=== PATIENT | female | born 1955 | race Caucasian/White ===

== ENCOUNTER 2019-05-26 09:10 | Outpatient (REF) | payer SELFPAY ==
[2019-05-26 10:55] LABS: Basophils # 0.1 10^3/uL (0.0-0.1); Basophils % 1.2 %; Eosinophils # 0.1 10^3/uL (0.0-0.8); Eosinophils % 2.5 %; Hematocrit 37.8 % (37.0-47.0); Lymphocytes % 35.7 %; Mean Corpuscular HGB Conc 34.4 g/dL (30.0-36.0); Mean Corpuscular Hemoglobin 31.3 pg (28.0-34.0); Mean Corpuscular Volume 90.9 fL (81-99); Mean Platelet Volume 10.1 fL (7.4-10.4); Monocytes # 0.4 10^3/uL (0.2-0.9); Monocytes % 6.3 %; Neutrophils # 3.1 10^3/uL (1.8-7.7); Neutrophils % 54.1 %; Nucleated Red Blood Cells % 0 %; Platelet Count 299 10^3/cmm (130-400); Red Blood Count 4.16 10^6/uL (4.1-5.3); Red Cell Distribution Width 11.8 % (12.1-15.1); White Blood Count 5.7 10^3/uL (4.0-10.0)
[2019-05-26 12:53] LABS: Alanine Aminotransferase 17 U/L (0-33); Albumin Level 4.6 g/dL (3.5-5.2); Alkaline Phosphatase 84 IU/L (35-105); Aspartate Amino Transferase 21 U/L (0-32); Blood Urea Nitrogen 14 mg/dL (8-23); Calcium 9.9 mg/dL (8.5-10.5); Carbon Dioxide 27 mmol/L (22-29); Chloride 98 mmol/L (98-107); Chol HDL Ratio 5.48 mg/dL (0.0-4.40); Cholesterol 252 mg/dL (0-200); Globulin 3.4 g/dL (1.3-4.6); Glomerular Filtration Rate 84.2 mL/min (90-130); Glucose 87 mg/dL (65-115); HDL Cholesterol 46 mg/dL (60-100); LDL Cholesterol Calculated 162 mg/dL (50-129); LDL HDL Ratio 3.52 RATIO (0.00-3.22); Sodium 137 mmol/L (136-145); Total Bilirubin 0.5 mg/dL (0.15-1.2); Triglycerides 220 mg/dL (0-150)
[2019-05-27 03:17] LABS: Estmated Average Glucose 117; Hemoglobin A1C 5.7 % (4.0-6.0)
== END 2019-05-26 09:11 | disposition home or self-care (01) ==
LOC: LAB 09:10
PROVIDERS: Family Provider Family Medicine; Visit Provider Dermatology
DX: Z01.89 Encounter for other specified special examinations (principal)
CPT/HCPCS: 80053; 80061; 83036; 84443; 85025

== ENCOUNTER → 2022-06-30 10:07 | Outpatient (BNVA) | payer SELFPAY | PROVIDERS: Family Provider Family Medicine; PCP Family Medicine; Visit Provider Family Medicine | DX: Z01.89 Encounter for other specified special examinations (principal); Z13.6 Encounter for screening for cardiovascular disorders ==

== ENCOUNTER 2023-03-09 19:21 | Emergency (ER) | payer MEDICARE, OTHER, SELFPAY ==
--- NOTE | 2023-03-09 19:24 | ECG_ITS ---
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 Measurements Intervals [place] Rate: 72 P: 63 WI: 148 QRS: 60 QRSD: 94 T: 73 QT: 361 QTc: 396 Interpretive Statements SINUS RHYTHM Nonspecific T wave changes Borderline EKG No previous ECG available for comparison Electronically Signed On 03-11-2023 13:38:12 CHIEF OF SURGERY by Michelle Sanchez M.D. [id number]
[2023-03-09 19:26] VITALS: BP 170/98; PULSE 71; RESP 18; TEMP 36.5; O2SAT 98; BMI 30.9
--- NOTE | 2023-03-09 19:32 | ECG_ITS ---
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 Measurements Intervals [place] Rate: 61 P: 46 TN: 129 QRS: 54 QRSD: 90 T: 82 QT: 416 QTc: 419 Interpretive Statements SINUS RHYTHM Nonspecific T wave changes Borderline EKG No previous ECG available for comparison Electronically Signed On 03-11-2023 13:26:57 TOOL DESIGN DRAFTER by Michelle Sanchez M.D. [id number]
--- NOTE | 2023-03-09 19:32 | XRR_ITS ---
PROCEDURE INFORMATION: Exam: XR Chest Exam date and time: 03/09/2023 7:39 PM Age: 67 years old Clinical indication: Pain; Chest pressure; Additional info: Chest pain TECHNIQUE: Imaging protocol: Radiologic exam of the chest. Views: 1 view. COMPARISON: No relevant prior studies available. FINDINGS: Lungs: Unremarkable. No consolidation. Pleural spaces: Unremarkable. No pleural effusion. No pneumothorax. Heart/Mediastinum: Unremarkable. No cardiomegaly. Bones/joints: No acute findings. XR/XR chest 1V portable [id number] IMPRESSION: No acute findings.
--- NOTE | 2023-03-09 20:03 | W.ED.CHESTPA ---
HPI - Chest Pain General: Chief Complaint: Chest Pain Stated Complaint: chest pain Time Seen by Provider: 03/09/23 19:35 History of Present Illness: Patient presents to the ER with experiencing chest pain/tightness off and on for a few weeks. Patient says she notices it more with activity but also notices it at rest 2. The pain is intermittent she says the pain got worse today versus any other day the patient does not take any blood pressure medicine is allergic to statins patient did say when she quit taking Splenda that this pain improved greatly. Patient denies any shortness of breath, diaphoresis, lightheadedness, nausea vomiting diarrhea. Patient is pain-free at this time. Patient does have known high cholesterol. And has had for some time Review of Systems General: Reports: 10 or more systems reviewed and unremarkable except in HPI and below Physical Exam Const: COMMON NORMALS: no acute distress, average body habitus, patient oriented x3, no limitations, healthy appearing, alert and well nourished HENMT: COMMON NORMALS: normocephalic, atraumatic, hearing grossly normal bilaterally, external ears normal, Normal external nose present, moist oral mucous membranes and oropharynx normal HEAD & SCALP: normocephalic and atraumatic NOSE: Normal external nose present EXTERNAL EAR: Yes external ears normal Eye: COMMON NORMALS: Equal, round and reactive pupils present, EOMs intact bilaterally, conjunctivae normal and no scleral icterus CONJUNCTIVA: Yes conjunctivae normal PUPIL: Yes Equal, round and reactive pupils present Neck/C-Spine: COMMON NORMALS: full ROM, no lymphadenopathy, supple, no meningeal signs, no JVD and Thyroid normal THYROID: Thyroid normal Chest: COMMONS NORMALS: normal inspection of the chest and normal palpation of entire chest wall Resp: COMMON NORMALS: normal respiratory effort, No retractions, No use of accessory muscles and clear to auscultation bilaterally AUSCULTATION: clear to auscultation bilaterally Cardio: COMMON NORMALS: no JVD, regular rate, regular rhythm, S1 normal heart sound present, S2 normal heart sound present, No gallops present (Cardio), No clicks present (Cardio), No murmurs present (Cardio) and No rub (Cardio) RATE: regular rate RHYTHM: regular rhythm HEART SOUNDS: S1 normal heart sound present and S2 normal heart sound present GI: COMMON NORMALS: Normal to inspection, nondistended, normoactive bowel sounds present, Soft to palpation, non-tender, No hepatosplenomegaly present and no masses PALPATION: Yes Soft to palpation and Yes No hepatosplenomegaly present : COMMON NORMALS: Yes no CVA tenderness BLADDER/KIDNEY EXAM: Yes no CVA tenderness Back/Pelvis: COMMON NORMALS: no CVA tenderness Neuro: COMMON NORMALS: patient oriented x3 SENSORIUM/ORIENTATION: Yes alert MENINGEAL SIGNS: Yes no meningeal signs Course Vital Signs: Vital signs: Vital Signs Temperature 97.7 F 03/09/23 19:26 Pulse Rate 62 03/09/23 21:04 Respiratory Rate 18 03/09/23 19:26 Blood Pressure 124/80 03/09/23 21:04 Pulse Oximetry 96 03/09/23 21:04 Oxygen Delivery Me thod Room Air 03/09/23 21:04 MDM - Chest Pain Medical Decision Making Patient presented to the ER with complaints of intermittent chest pain. Patient was worked up in a standard chest pain fashion with chest x-ray serial EKGs and labs. All of which were essentially negative. It is thought that the patient's pain is not cardiac in nature. Patient be referred back to her PCP for further evaluation testing which may include but not limited to cardiac stress test. Differential Diagnosis Unlikely acute massive pulmonary embolism, acute respiratory failure, acute myocardial infarction, cardiac arrest or sudden cardiac Medical Records I reviewed the patient's medical records. Lab Data I reviewed the patient's lab results. 03/09/23 19:40 03/09/23 19:40 Radiology Impressions Chest X-Ray 03/09/23 19:32 IMPRESSION: No acute findings. Laboratory Results WBC 7.12 10^3/uL (3.29-11.43) 03/09/23 19:40 RBC 4.12 10^6/uL (3.85-5.65) 03/09/23 19:40 Hgb 12.40 g/dL (11.27-16.99) 03/09/23 19:40 Hct 36.5 % (36-47) 03/09/23 19:40 MCV 88.6 fl (85-98) 03/09/23 19:40 MCH 30.1 pg (27-33) 03/09/23 19:40 MCHC 34.0 g/dL (30-55) 03/09/23 19:40 RDW 12.6 % (12.1-15.1) 03/09/23 19:40 Plt Count 282 10^3/cmm (157-399) 03/09/23 19:40 MPV 10.0 fL (7.4-10.4) 03/09/23 19:40 Neut % (Auto) 51.5 % 03/09/23 19:40 Lymph % (Auto) 38.6 % 03/09/23 19:40 [place] % (Auto) 6.6 % 03/09/23 19:40 Eos % (Auto) 2.2 % 03/09/23 19:40 Baso % (Auto) 1.0 % 03/09/23 19:40 Neut # (Auto) 3.66 10^3/uL (1.8-7.7) 03/09/23 19:40 Lymph # (Auto) 2.8 10^3/uL (0.8-4.8) 03/09/23 19:40 [place] # (Auto) 0.5 10^3/uL (0.2-0.9) 03/09/23 19:40 Eos # (Auto) 0.2 10^3/uL (0.0-0.8) 03/09/23 19:40 Baso # (Auto) 0.1 10^3/uL (0.0-0.1) 03/09/23 19:40 Nucleated RBC % (auto) 0 % 03/09/23 19:40 Nucleated RBCs # 0.0 /100WBC 03/09/23 19:40 Sodium 135 mmol/L (136-145) L 03/09/23 19:40 Potassium 3.8 mmol/L (3.5-5.1) 03/09/23 19:40 Chloride 98 mmol/L (98-107) 03/09/23 19:40 Carbon Dioxide 25 mmol/L (22-29) 03/09/23 19:40 Anion Gap 15.8 (5-19) 03/09/23 19:40 BUN 14 mg/dL (8-23) 03/09/23 19:40 Creatinine 0.7 mg/dL (0.5-0.9) 03/09/23 19:40 GFR Calculation 83.5 mL/min (90-130) L 03/09/23 19:40 Glucose 117 mg/dL (65-115) H 03/09/23 19:40 Calculated Osmolality 282 mOsm/kg (285-295) L 03/09/23 19:40 Calcium 9.7 mg/dL (8.5-10.5) 03/09/23 19:40 Total Bilirubin 0.2 mg/dL (0.15-1.2) 03/09/23 19:40 AST 21 U/L (0-32) 03/09/23 19:40 ALT 17 U/L (0-33) 03/09/23 19:40 Alkaline Phosphatase 88 U/L (35-105) 03/09/23 19:40 Troponin T Baseline < 6 ng/L (0-10) 03/09/23 19:40 Troponin T 120 Minute 6.00 ng/L (0-10) 03/09/23 22:00 Total Protein 7.4 g/dL (6.6-8.7) 03/09/23 19:40 Albumin 4.6 g/dL (3.5-5.2) 03/09/23 19:40 Globulin 2.8 g/dL (1.3-4.6) 03/09/23 19:40 All radiology interpretation(s) finalized by discharge EKG Data EKG 1: I personally reviewed and interpreted this EKG as follows: EKG interpretation date: 03/09/23 EKG interpretation time: 19:24 Prior EKG tracings: not available for review Interpretation: EKG showed ventricular rate 72 bpm, MI interval 148, QRS duration 94, QTc of 385, sinus rhythm, EKG 2: I personally reviewed and interpreted this EKG as follows: EKG interpretation date: 03/09/23 EKG interpretation time: 21:33 Prior EKG tracings: available for review Interpretation: EKG showed ventricular rate 61 bpm, MI interval 129, QRS duration 90, QTc of 418, sinus rhythm, Discharge Plan Discharge Patient Disposition: Home Clinical Impression: Chest pain, non-cardiac Condition: Stable Discharge Orders: Discharge ED (Routine); Ordered 03/09/23 Ordered By: Gray Orozco Referrals: Kulwinder Galaviz DO [Staff Physician] - Lorrie Tyler DO [Primary Care Provider] - 1 week Patient Instructions: Chest Pain - Noncardiac Activity Restrictions/Additional Instructions: It is felt that your chest pain is noncardiac in nature. Please follow-up with your family practice physician within the next 7 to 10 days for further evaluation and treatment. Coding Level of Care Code ED Health Information Managers for Moris Aguilar
[2023-03-09 20:05] LABS: Basophils # 0.1 10^3/uL (0.0-0.1); Eosinophils # 0.2 10^3/uL (0.0-0.8); Eosinophils % 2.2 %; Hematocrit 36.5 % (36-47); Lymphocytes # 2.8 10^3/uL (0.8-4.8); Lymphocytes % 38.6 %; Mean Corpuscular Hemoglobin 30.1 pg (27-33); Mean Corpuscular Volume 88.6 fl (85-98); Monocytes # 0.5 10^3/uL (0.2-0.9); Monocytes % 6.6 %; Neutrophils # 3.66 10^3/uL (1.8-7.7); Neutrophils % 51.5 %; Nucleated Red Blood Cells % 0 %; Platelet Count 282 10^3/cmm (157-399); Red Blood Count 4.12 10^6/uL (3.85-5.65); Red Cell Distribution Width 12.6 % (12.1-15.1); White Blood Count 7.12 10^3/uL (3.29-11.43)
[2023-03-09 20:24] LABS: Troponin(5th) Baseline < 6 ng/L (0-10)
[2023-03-09 20:25] LABS: Alanine Aminotransferase 17 U/L (0-33); Albumin Level 4.6 g/dL (3.5-5.2); Alkaline Phosphatase 88 U/L (35-105); Anion Gap 15.8 (5-19); Aspartate Amino Transferase 21 U/L (0-32); Blood Urea Nitrogen 14 mg/dL (8-23); Calcium 9.7 mg/dL (8.5-10.5); Carbon Dioxide 25 mmol/L (22-29); Chloride 98 mmol/L (98-107); Globulin 2.8 g/dL (1.3-4.6); Glomerular Filtration Rate 83.5 mL/min (90-130); Glucose 117 mg/dL (65-115); Osmolality Calculated 282 mOsm/kg (285-295); Potassium 3.8 mmol/L (3.5-5.1); Sodium 135 mmol/L (136-145); Total Bilirubin 0.2 mg/dL (0.15-1.2); Total Protein 7.4 g/dL (6.6-8.7)
[2023-03-09 21:04] VITALS: BP 124/80; PULSE 62; O2SAT 96
[2023-03-09 22:35] VITALS: BP 126/74; PULSE 55; O2SAT 95
[2023-03-09 22:35] LABS: Troponin 5 2HR < 6.0 ng/L (0-10); Troponin 5 2HR Delta 0 ABS# (0-10)
== END 2023-03-09 22:52 | disposition home or self-care (01) ==
PROVIDERS: Emergency Provider Emergency Medicine; PCP Family Medicine
DX: R07.89 Other chest pain (principal)
CPT/HCPCS: 36415; 71045; 80053; 84484; 85025; 93005; 93010; 99285